=== PATIENT | female | born 1975 | race Caucasian/White ===

== ENCOUNTER 2018-02-21 18:02 | Emergency (ER) | payer MEDICAID, OTHER ==
[~2018-02-21] VITALS: Ht 172.7 cm; Wt 114.0 kg
[~2018-02-21 18:02] MED LIST: ALBU18HF INH; ALPR0.25 PO; BUSP5TAB2 PO; BUTA1CAP30 PO; FERR324T5 PO; GABA300C10 PO; HYDR4TAB48 PO; LEVO25TA4 PO; LISI5TAB7 PO; NORT25CA PO; ONDA4TAB7 PO; OXYC-307 PO; SUMA25TA3 PO; TIZA6CAP PO; VENL75TA PO; VENTOLIN; VITAMIN D PO; ZOLP-413 PO
[2018-02-21] MEDS ORDERED: DIPHENHYDRAMINE 50 MG/ML, 1ML IVPush ONE (19:30)
[2018-02-21] MEDS ORDERED: SODIUM CHLORIDE FLUSH 10ML SYR IVF ONE (19:30)
[2018-02-21] MEDS ORDERED: SODIUM CHLORIDE 0.9% 1,000ML IVBOLUS ONE (19:30)
[2018-02-21] MEDS ORDERED: KETOROLAC 30 MG/1 ML IVPush ONE (19:30)
[2018-02-21] MEDS ORDERED: DEXAMETHASONE 4 MG/ML, 1ML IVPush ONE (19:30)
[2018-02-21] MEDS ORDERED: DEXAMETHASONE 10 MG in SODIUM CHLORIDE 0.9% 50 ML IV ONE (19:30)
[2018-02-21] MEDS ORDERED: METOCLOPRAMIDE 5 MG/ML, 2ML IVPush ONE (19:30)
[2018-02-21] MEDS ORDERED: METOCLOPRAMIDE 5 MG/ML, 2ML ONE (19:35)
[2018-02-21] MEDS ORDERED: DIPHENHYDRAMINE 50 MG/ML, 1ML ONE (19:35)
[2018-02-21] MEDS ORDERED: KETOROLAC 30 MG/1 ML ONE (19:35)
[2018-02-21 19:44] VITALS: BP 169/96
== END 2018-02-21 21:47 ==
LOC: ED 21:10
DX: G43.019 Migraine without aura, intractable, without status migrainosus (principal); G89.29 Other chronic pain
CPT/HCPCS: 96365; 96375; 99284; J1100; J1200; J1885; J2765; J7030

== ENCOUNTER 2018-11-02 08:07 | Outpatient (CLI) | payer OTHER ==
[~2018-11-02 08:07] MED LIST changes: -NORT25CA PO; +NORT25CA78 PO
== END 2018-11-02 23:59 | disposition home or self-care (01) ==
LOC: RAD 08:07 → EDSTATUS 09:00 → RAD 23:59
PROVIDERS: ATTEND Specialist
DX: Z02.9 Encounter for administrative examinations, unspecified (principal)

== ENCOUNTER → 2018-11-14 | Outpatient (CLI) | payer OTHER ==
[~2018-11-14] MED LIST changes: +FENTANYL PF 100 MCG/2ML ONE; +FLUMAZENIL 0.1 MG/1 ML, 5ML ONE; +MIDAZOLAM 1 MG/ML, 5ML ONE; +NALOXONE 1 MG/ML, 2ML ONE
== END | disposition home or self-care (01) ==
LOC: RAD 12:29
PROVIDERS: ATTEND Specialist
DX: M51.24 Other intervertebral disc displacement, thoracic region (principal)
CPT/HCPCS: 72157; 99156; 99157; J2250; J3010; J2310

== ENCOUNTER 2018-11-29 11:01 | Day surgery (SDC) | payer OTHER ==
[~2018-11-29] VITALS: Ht 175.3 cm; Wt 114.2 kg
[~2018-11-29 11:01] MED LIST changes: -FENTANYL PF 100 MCG/2ML ONE; -FLUMAZENIL 0.1 MG/1 ML, 5ML ONE; -MIDAZOLAM 1 MG/ML, 5ML ONE; -NALOXONE 1 MG/ML, 2ML ONE
[2018-11-29] MEDS ORDERED: LACTATED RINGERS 1,000 ML IV SCH (11:47)
[2018-11-29] MEDS ORDERED: PLEASE ENTER HEIGHT AND WEIGHT MC SCH (12:00)
[2018-11-29 12:09] VITALS: BP 127/85
[2018-11-29 12:40] LABS: HCG UR SG 1.039 (1.003-1.030)
[2018-11-29] MEDS ORDERED: PROPOFOL 10 MG/ML, 50ML ONE (13:32)
[2018-11-29] MEDS ORDERED: SUCCINYLCHOLINE 20 MG/ML, 10ML ONE (13:32)
[2018-11-29] MEDS ORDERED: GADOBUTROL 10 MMOL/10 ML PFS ONE (15:04)
[2018-11-29] MEDS ORDERED: ONDANSETRON 2MG/ML, 2ML IV PRN (15:30)
== END 2018-11-29 16:00 | disposition home or self-care (01) ==
LOC: OUT 11:01 → EDSTATUS 12:45 → OUT 16:00
PROVIDERS: ATTEND Specialist
DX: M51.24 Other intervertebral disc displacement, thoracic region (principal); M51.34 Other intervertebral disc degeneration, thoracic region; M96.1 Postlaminectomy syndrome, not elsewhere classified; M54.12 Radiculopathy, cervical region; J45.909 Unspecified asthma, uncomplicated; I10 Essential (primary) hypertension; E03.9 Hypothyroidism, unspecified; G43.909 Migraine, unspecified, not intractable, without status migrainosus; F32.9 Major depressive disorder, single episode, unspecified; F41.9 Anxiety disorder, unspecified; G47.00 Insomnia, unspecified; Z79.891 Long term (current) use of opiate analgesic; Z79.890 Hormone replacement therapy; Z79.899 Other long term (current) drug therapy; Z98.1 Arthrodesis status; Z98.84 Bariatric surgery status; Z98.890 Other specified postprocedural states; Z80.3 Family history of malignant neoplasm of breast; Z83.3 Family history of diabetes mellitus
CPT/HCPCS: 72157; 81025; A9585; J0330; J2704; J7120

== ENCOUNTER 2019-02-01 14:06 | Emergency (ER) | payer OTHER ==
[~2019-02-01] VITALS: Ht 172.7 cm; Wt 114.2 kg
[~2019-02-01 14:06] MED LIST changes: +DIHY1SPR NS; +FIORICET PO
--- NOTE | 2019-02-01 15:00 | NUR ---
REPORT RECEIVED, CARE ASSUMED. PTS AT BEDSIDE. PT PROVIDED WITH PILLOW AND ICE PACK FOR COMFORT.
[2019-02-01 15:13] LABS: BASOPHILS # (AUTO) 0.05 x10^3/uL (0-0.1); BASOPHILS % (AUTO) 0 % (0-1); EOSINOPHILS # (AUTO) 0.13 x10^3/uL (0-0.4); EOSINOPHILS % (AUTO) 1 % (1-7); LYMPHOCYTES # (AUTO) 1.53 x10^3/uL (1-3.4); LYMPHOCYTES % (AUTO) 10 % (22-44); MD NO; MEAN CORPUSCULAR HEMOGLOBIN 32.3 pg (27.0-34.8); MEAN CORPUSCULAR HGB CONC 33.3 g/dL (32.4-35.8); MEAN PLATELET VOLUME 9.2 fL (7.4-10.4); MONOCYTES # (AUTO) 0.87 x10^3/uL (0.2-0.8); MONOCYTES % (AUTO) 6 % (2-9); NEUTROPHILS # (AUTO) 13.06 x10^3/uL (1.8-6.8); NEUTROPHILS % (AUTO) 84 % (42-75); PLATELET COUNT 321 x10^3/uL (130-400); RED BLOOD COUNT 4.59 x10^6/uL (3.82-5.3); RED CELL DISTRIBUTION WIDTH 12.7 % (9.6-15.2)
[2019-02-01 15:23] LABS: ALANINE AMINOTRANSFERASE 40 U/L (12-78); ALBUMIN 4.1 g/dL (3.4-5.0); ANION GAP 11 mmol/L (5-15); CALCIUM 8.7 mg/dL (8.5-10.1); CHLORIDE 110 mmol/L (98-107)
[2019-02-01 15:34] LABS: ALKALINE PHOSPHATASE 100 U/L (45-117); BILIRUBIN,TOTAL 0.6 mg/dL (0.2-1.0); CREATININE 1.54 mg/dL (0.55-1.02); FREE T4 (FREE THYROXINE) 1.08 ng/dL (0.76-1.46); TOTAL PROTEIN 7.2 g/dL (6.4-8.2)
--- NOTE | 2019-02-01 16:21 | NUR ---
PTS 'S PHONE NUMBER: NAKITA AREVALO [phone]
--- NOTE | 2019-02-01 16:35 | NUR ---
PT CONT IN DARKENED ROOM, WITH CLOTH OVER HEAD. PT STATES FEELING BETTER, BUT STILL HURTS. "MY MOM IS AT [facility] AND HAS BEEN DX WITH STAGE 4 MULTIPLE MYELOMA. THE STRESS HAS BEEN BUILDING UP. PT AWARE OF URINE SPECIMAN NEEDED.
[2019-02-01 17:05] LABS: CULTURE INDICATED? NO; MICROSCOPIC NOT IND
--- NOTE | 2019-02-01 17:24 | NUR ---
NO SIG CHANGE IN PT CONDITION NOTED. PTS AT BEDSIDE. PT PROVIDED WITH ICE CHIPS. NO OTHER NEEDS EXPRESSED AT THIS TIME. CONT TO MONITOR.
[2019-02-01 18:38] VITALS: BP 117/67
== END 2019-02-01 18:40 | disposition home or self-care (01) ==
LOC: ED 16:40
DX: I95.89 Other hypotension (principal); G43.909 Migraine, unspecified, not intractable, without status migrainosus; F41.1 Generalized anxiety disorder; F32.9 Major depressive disorder, single episode, unspecified
CPT/HCPCS: 36415; 74022; 74176; 80053; 81003; 83690; 84439; 84443; 85025; 93005; 99284

== ENCOUNTER 2019-05-30 17:25 | Emergency (ER) | payer OTHER ==
[~2019-05-30] VITALS: Ht 175.3 cm; Wt 109.0 kg
--- NOTE | 2019-05-30 17:43 | NUR ---
TASK RN: PT ANASTASIIA DONOVAN WHILE AT DOC TO HAVE EPIDURAL PLACED FOR CHRONIC BACK PAIN, ON SET OF CP STARTED YESTERDAY INTERMITTENT SINCE SUMMER, NON RADIATING, CAUSING NAUSEA. GIVEN [employer] AND ASPIRIN. PT STATES HAS BEEN HTN SINCE YESTERDAY AND THAT CP COMES ON WHEN HTN, TOOK 2 LISINIPRIL DIRECTED BY PCP. CONNECTED TO ALL MONITORING, HTN NOTED. TECH TO BEDSIDE FOR EKG. CALL LIGHT WITHIN REACH. REPORT TO BE GIVEN TO JAIME RENEE. AWAITING ORDERS AT THIS TIME
--- NOTE | 2019-05-30 18:17 | NUR ---
DR. SOLOMON AT BEDSIDE.
[2019-05-30] MEDS ORDERED: METOCLOPRAMIDE 5 MG/ML, 2ML ONE (18:29)
[2019-05-30 18:38] LABS: BASOPHILS # (AUTO) 0.02 x10^3/uL (0-0.1); BASOPHILS % (AUTO) 0 % (0-1); EOSINOPHILS # (AUTO) 0.02 x10^3/uL (0-0.4); EOSINOPHILS % (AUTO) 0 % (1-7); LYMPHOCYTES # (AUTO) 0.41 x10^3/uL (1-3.4); LYMPHOCYTES % (AUTO) 5 % (22-44); MD NO; MEAN CORPUSCULAR HEMOGLOBIN 31.7 pg (27.0-34.8); MEAN CORPUSCULAR HGB CONC 33.2 g/dL (32.4-35.8); MEAN CORPUSCULAR VOLUME 95.5 fL (80-100); MEAN PLATELET VOLUME 8.8 fL (7.4-10.4); MONOCYTES # (AUTO) 0.02 x10^3/uL (0.2-0.8); MONOCYTES % (AUTO) 0 % (2-9); NEUTROPHILS # (AUTO) 7.59 x10^3/uL (1.8-6.8); NEUTROPHILS % (AUTO) 94 % (42-75); PLATELET COUNT 343 x10^3/uL (130-400); RED BLOOD COUNT 4.74 x10^6/uL (3.82-5.3); RED CELL DISTRIBUTION WIDTH 12.6 % (9.6-15.2)
[2019-05-30] MEDS: SODIUM CHLORIDE FLUSH 10ML SYR IVF ONE (18:38)
[2019-05-30] MEDS: METOCLOPRAMIDE 5 MG/ML, 2ML IVPush ONE (18:38)
--- NOTE | 2019-05-30 18:38 | NUR ---
PT MEDICATED WITH CLONIDINE AND REGLAN PER SEP. PHARMACY REQUEST SLIP SENT TO PHARMACY FOR DHE 45.
[2019-05-30] MEDS: DIHYDROERGOTAMINE 1 MG/ML, 1ML IVPush ONE (18:43)
--- NOTE | 2019-05-30 18:44 | NUR ---
PT MEDICATED WITH DHE 45 FOR HEADACHE ORDERED. FAMILY AT BEDSIDE.
[2019-05-30 18:46] LABS: ALBUMIN 4.4 g/dL (3.4-5.0); ANION GAP 5 mmol/L (5-15); CHLORIDE 112 mmol/L (98-107); CREATININE 0.78 mg/dL (0.55-1.02)
[2019-05-30 18:50] LABS: TROPONIN I < 0.015 ng/mL (0.000-0.045)
[2019-05-30] MEDS ORDERED: PROM25TA10 PO (18:50)
--- NOTE | 2019-05-30 18:56 | NUR ---
SBAR HAND-OFF REPORT TO VÍCTOR PEÑALOZA.
--- NOTE | 2019-05-30 19:16 | NUR ---
ICE PACK PROVIDED PT REQUESTED FOR HER HEADACHE
[2019-05-30 19:40] VITALS: BP 166/95
--- NOTE | 2019-05-30 19:40 | NUR ---
PT STATES RIVERA PAIN IS IMPROVED AND NOW RATES IT A 3/10. BP NOTED. CHART UP FOR RECHECK
--- NOTE | 2019-05-30 19:57 | NUR ---
Patient/Caregiver given discharge instructions and they have confirmed that they understand the instructions. Patient ambulatory with steady gait.
== END 2019-05-30 19:59 | disposition home or self-care (01) ==
LOC: ED 19:53
DX: I10 Essential (primary) hypertension (principal); M54.5 Low back pain; R51 Headache; F32.9 Major depressive disorder, single episode, unspecified; G89.29 Other chronic pain
CPT/HCPCS: 36415; 80048; 82040; 83880; 84484; 85025; 93005; 96374; 96375; 99284; J1110; J2765